=== PATIENT | male | born 1955 | race Caucasian/White ===

== ENCOUNTER 2017-09-16 04:43 | Emergency (ER) | payer BC ==
[~2017-09-16] VITALS: Ht 175.3 cm; Wt 73.5 kg
[2017-09-16 04:51] VITALS: Ht 175.3 cm; Wt 73.5 kg
[2017-09-16 05:28] LABS: BASOPHIL % 0.3 % (0-2); PLATELET COUNT 131 x10^3mcL (130-400); RED CELL DISTRIBUTION WIDTH 13.3 % (11.5-14.5)
[2017-09-16 05:45] LABS: CALCIUM 9.4 mg/dL (8.5-10.1); CARBON DIOXIDE 24.5 mmol/L (21-32); CHLORIDE SERUM 101 mmol/L (98-107); CREATININE SERUM 0.9 mg/dL (0.7-1.3); GFR1 > 60 mL/min; GLUCOSE SERUM 165 mg/dL (74-106); POTASSIUM SERUM 3.6 mmol/L (3.5-5.1); SODIUM SERUM 137 mmol/L (136-145)
[2017-09-16 05:49] LABS: ALBUMIN 3.6 g/dL (3.4-5.0); ALKALINE PHOSPHATASE 97 U/L (46-116); ALT/SGPT 35 U/L (16-63); AST/SGOT 25 U/L (15-37); BILIRUBIN TOTAL 0.62 mg/dL (0.20-1.00); TOTAL PROTEIN, SERUM 8.1 g/dL (6.4-8.2)
[2017-09-16 06:48] LABS: UA SPECIFIC GRAVITY 1.015 (1.005-1.035); microscopic required? YES; urine erythrocyte 3+ (NEGATIVE)
[2017-09-16 07:32] VITALS: BP 115/70
== END 2017-09-16 07:32 | disposition home or self-care (01) ==
LOC: ED 04:43
PROVIDERS: Emergency Medicine
DX: R33.9 Retention of urine, unspecified (principal)
CPT/HCPCS: 36415; J1885

== ENCOUNTER 2017-09-17 02:14 | Emergency (ER) | payer BC ==
[~2017-09-17] VITALS: Ht 175.3 cm; Wt 72.2 kg
[2017-09-17 02:18] VITALS: Ht 175.3 cm; Wt 72.2 kg
[2017-09-17 03:38] LABS: BASOPHIL % 0.4 % (0-2); PLATELET COUNT 133 x10^3mcL (130-400); RED CELL DISTRIBUTION WIDTH 13.6 % (11.5-14.5)
[2017-09-17 04:26] LABS: microscopic required? YES; urine erythrocyte 3+ (NEGATIVE)
[2017-09-17 05:34] LABS: CARBON DIOXIDE 24.9 mmol/L (21-32); CHLORIDE SERUM 107 mmol/L (98-107); GLUCOSE SERUM 115 mg/dL (74-106); POTASSIUM SERUM 3.7 mmol/L (3.5-5.1); SODIUM SERUM 144 mmol/L (136-145)
[2017-09-17 05:35] LABS: CALCIUM 8.9 mg/dL (8.5-10.1); CREATININE SERUM 0.8 mg/dL (0.7-1.3); GFR1 > 60 mL/min
[2017-09-17 06:17] VITALS: BP 126/73
== END 2017-09-17 06:17 | disposition home or self-care (01) ==
LOC: ED 02:14
PROVIDERS: Emergency Medicine
DX: N39.0 Urinary tract infection, site not specified (principal); F17.210 Nicotine dependence, cigarettes, uncomplicated
CPT/HCPCS: 36415

== ENCOUNTER 2017-09-18 23:07 | Emergency (ER) | payer BC ==
[~2017-09-18] VITALS: Ht 175.3 cm; Wt 73.0 kg
[2017-09-18 23:45] VITALS: Ht 175.3 cm; Wt 73.0 kg
[2017-09-19 01:29] VITALS: BP 120/69
== END 2017-09-19 01:29 | disposition home or self-care (01) ==
LOC: ED 23:07
DX: N39.0 Urinary tract infection, site not specified (principal)